=== PATIENT | male | born 1975 | race Two or more races ===

== ENCOUNTER 2021-01-24 16:31 | Emergency (ER) | payer MEDICAID ==
[~2021-01-24] VITALS: Ht 172.7 cm; Wt 65.8 kg
[2021-01-24 16:33] VITALS: BP 121/74
[2021-01-24 17:23] LABS: Basophils # (auto) 0.1 10 ^3/uL (0-0.2); Basophils % (auto) 0.5 % (0.0-2.0); Eosinophils # (auto) 0 10 ^3/uL (0-0.8); Eosinophils % (auto) 0.3 % (0.0-7.0); Hematocrit 38.6 % (41.0-53.0); Lymphocytes % (auto) 18.3 % (10.0-50.0); Mean Corpuscular Hemoglobin 29.4 pg (28.0-32.0); Mean Corpuscular Hgb Conc. 33.7 g/dL (32.0-36.0); Mean Corpuscular Volume 87.2 fL (80.0-100.0); Monocytes # (auto) 0.7 10 ^3/uL (0-1.3); Monocytes % (auto) 6.3 % (0.0-12.0); Neutrophils # (auto) 8.1 10 ^3/uL (1.6-8.6); Neutrophils % (auto) 74.6 % (37.0-80.0); Red Blood Cells 4.43 10^6/uL (4.5-5.90); Red Cell Distribution Width 16.4 % (11.8-14.3); White Blood Cell 10.8 10^3/uL (4.4-10.8)
[2021-01-24 17:42] LABS: Anion Gap 6 (5-15); Blood Alcohol < 3.0 mg/dL (0-5); Blood Urea Nitrogen 19 mg/dL (7-18); Calcium 8.3 mg/dL (8.5-10.1); Carbon Dioxide 25 mmol/L (21-32); Chloride 109 mmol/L (98-107); Glucose 106 mg/dL (74-106); Sodium 140 mmol/L (136-145)
[2021-01-24 17:46] LABS: Alanine Aminotransferase 22 U/L (16-61); Alkaline Phosphatase 60 U/L (45-117); Aspartate Aminotransferase 13 U/L (15-37); BUN/Creatinine Ratio 20.9; Bilirubin, Total 0.2 mg/dL (0.2-1.0); GFR African American 115 mL/min; GFR Non-African American 95 mL/min; Total Protein 6.2 g/dL (6.4-8.2)
== END 2021-01-24 18:06 | disposition home or self-care (01) ==
LOC: ER 16:31 → EDBD 16:31 → ER 18:06
DX: J40 Bronchitis, not specified as acute or chronic (principal); J32.9 Chronic sinusitis, unspecified; Z20.822 Contact with and (suspected) exposure to COVID-19
CPT/HCPCS: 36415; 71045; 80053; 80320; 85025; 87426

== ENCOUNTER 2024-07-23 08:29 | Inpatient (IN) | payer MEDICAID ==
[~2024-07-23] VITALS: Ht 172.7 cm; Wt 78.6 kg
--- NOTE | 2024-07-23 09:47 | ED.PDOC ---
History of Present Illness HPI Comments 48-year-old male brought in by EMS presents with a chief complaint of abdominal pain x an unknown amount of time with associated nausea and vomiting. Patient has developmental delay and is unclear on time frame. Patient is A/Ox3 at this time. Patient mentions that his last bowel movement was today. Patient is poor historian. Chief Complaint: Abdominal Pain Time Seen by MD: 09:12 Primary Care Provider: UNKNOWN Reviewed Notes: Medications, Allergies Allergies: Coded Allergies: NO KNOWN ALLERGIES (Unverified , 01/24/21) Information Source: Patient, Emergency Med Personnel Mode of Arrival: EMS Severity: Moderate Timing: Days Duration: Intermittent Prehospital treatment: None Past Medical History PAST MEDICAL HISTORY: Schizophrenia, Pt Confused Surgical History: Unknown, Pt Confused Family History Family History: Unknown, Pt Confused Social History Smoker: Unknown, Pt Confused Alcohol: Unknown, Pt Confused Drugs: Unknown, Pt Confused Constitutional: denies: chills, diaphoresis, fatigue, fever, malaise, sweats, weakness, others EENTM: denies: blurred vision, double vision, ear bleeding, ear discharge, ear drainage, ear pain, ear ringing, eye pain, eye redness, hearing loss, mouth pain, mouth swelling, nasal discharge, nose bleeding, nose congestion, nose pain, photophobia, tearing, throat pain, throat swelling, voice changes, others Respiratory: denies: cough, hemoptysis, orthopnea, SOB at rest, shortness of breath, SOB with excertion, stridor, wheezing, others Cardiovascular: denies: chest pain, dizzy spells, diaphoresis, Dyspnea on exertion, edema, irregular heart beat, left arm pain, lightheadedness, palpitations, PND, syncope, others Gastrointestinal: reports: abdominal pain, nausea, vomiting; denies: abdomen distended, blood streaked bowels, constipated, diarrhea, dysphagia, difficulty swallowing, hematemesis, melena, poor appetite, poor fluid intake, rectal blee ding, rectal pain, others Genitourinary: denies: burning, dysuria, flank pain, frequency, hematuria, incontinence, penile discharge, penile sore, pain, testicle pain, testicle swelling, urgency, others Neurological: denies: dizziness, fainting, headache, left sided numbness, left sided weakness, numbness, paresthesia, pre-existing deficit, right sided numbness, right sided weakness, seizure, speech problems, tingling, tremors, weakness, others Musculoskeletal: denies: back pain, gout, joint pain, joint swelling, muscle pain, muscle stiffness, neck pain, others Integumetry: denies: bruises, change in color, change in hair/nails, dryness, laceration, lesions, lumps, rash, wounds, others Allergic/Immunocompromised: denies: Difficulty Healing, Frequent Infections, Hives, Itching, others Hematologic/Lymphatic: denies: anemia, blood clots, easy bleeding, easy bruising, swollen glands, others Endocrine: denies: excessive hunger, excessive sweating, excessive thirst, excessive urination, flushing, intolerance to cold, intolerance to heat, unexplained weight gain, unexplained weight loss, others Psychiatric: denies: anxiety, bipolar disorder, depression, hopeless, panic disorder, schizophrenia, sleepless, suicidal, others All Other Systems: Reviewed and Negative Physical Exam General Appearance: No Apparent Distress, Normal HEENT: Normal ENT Inspection, Pharynx Normal, TMs Normal Neck: Full Range of Motion, Non-Tender, Normal, Normal Inspection Respiratory: Chest Non-Tender, Lungs Clear, No Accessory Muscle Use, No Respiratory Distress, Normal Breath Sounds Cardiovascular: No Edema, No JVD, No Murmur, No Gallop, Normal Peripheral Pulses, Regular Rate/Rhythm Breast Exam: Deferred Gastrointestinal: No Organomegaly, Non Tender, No Pulsatile Mass, Normal Bowel Sounds, Soft Genitalia: Deferred Pelvic: Deferred Rectal: Deferred Extremities: No calf tenderness, Normal capillary refill, Normal inspection, Normal range of motion, Non-tender, No pedal edema Musculoskeletal : Apperance: Normal Neurologic: Alert, champion of sustainable design II-XII nml as Tested, No Motor Deficits, Normal Affect, Normal Mood, No Sensory Deficits Cerebellar Function: Normal Reflexes: Normal Skin: Dry, Normal Color, Warm Lymphatic: No Adenopathy Was a procedure done? Was a procedure done?: No Differential Dx Considerations may include: Diverticulitis, acute appendicitis, constipation, renal colic, pyelonephritis X-Ray, Labs, Meds, VS Vital Signs Date Time Temp Pulse Resp B/P (MAP) Pulse Ox O2 Delivery O2 Flow Rate FiO2 07/23/24 12:00 73 07/23/24 12:00 74 19 113/73 (86) 97 07/23/24 10:00 79 20 106/69 (81) 99 07/23/24 09:04 Room Air* 0 21 07/23/24 09:00 97.5 86 22 117/66 (83) 97 97.5 07/23/24 08:36 97.9 90 20 110/70 (83) 99 Lab Test 07/23/24 10:53 07/23/24 10:14 07/23/24 09:45 Range/Units Troponin I High Sensitivity < 3 L < 3 L </=54 ng/L Urine Color Light-yellow Yellow Urine Clarity Clear Clear Urine pH 6.0 5.0-9.0 Urine Specific [place] 1.012 1.001-1.035 Urine Protein Negative Negative Urine Ketones Negative Negative Urine Blood Negative Negative /uL Urine Nitrite Negative Negative Urine Bilirubin Negative Negative Urine Urobilinogen Normal Negative mg/dL Urine Leukocyte Esterase Negative Negative /uL Urine RBC None seen 0 - 3 /hpf Urine Microscopic WBC < 1 0-3 /HPF Urine Squamous Epithelial Cells Few <5 /hpf Urine Bacteria None seen None Seen /hpf Urine Glucose Normal Normal mg/dL White Blood Count 8.5 4.4-10.8 10^3/uL Red Blood Count 3.65 L 4.5-5.90 10^6/uL Hemoglobin 8.6 L 13.5-17.5 g/dL Hematocrit 26.8 L 41.0-53.0 % Mean Corpuscular Volume 73.5 L 80.0-100.0 fL Mean Corpuscular Hemoglobin 23.7 L 28.0-32.0 pg Mean Corpuscular Hemoglobin Concent 32.2 32.0-36.0 g/dL Red Cell Distribution Width 17.9 H 11.8-14.3 % Platelet Count 304 140-450 10^3/uL Mean Platelet Volume 8.6 6.9-10.8 fL Neutrophils (%) (Auto) 74.8 37.0-80.0 % Lymphocytes (%) (Auto) 16.9 10.0-50.0 % Monocytes (%) (Auto) 6.9 0.0-12.0 % Eosinophils (%) (Auto) 0.6 0.0-7.0 % Basophils (%) (Auto) 0.8 0.0-2.0 % Neutrophils # (Auto) 6.3 1.6-8.6 10 ^3/uL Lymphocytes # (Auto) 1.4 0.4-5.4 10 ^3/uL Monocytes # (Auto) 0.6 0-1.3 10 ^3/uL Eosinophils # (Auto) 0 0-0.8 10 ^3/uL Basophils # (Auto) 0.1 0-0.2 10 ^3/uL Nucleated Red Blood Cells 0.0 % Sodium Level 136 136-145 mmol/L Potassium Level 5.2 H 3.5-5.1 mmol/L Chloride Level 106 98-107 mmol/L Carbon Dioxide Level 25 20-31 mmol/L Anion Gap 5 5-15 Blood Urea Nitrogen 24 H 9-23 mg/dL Creatinine 1.16 0.700-1.30 mg/dL Glomerular Filtration Rate Calc 77 >90 mL/min BUN/Creatinine Ratio 20.7 H 10.0-20.0 Serum Glucose 119 H 74-106 mg/dL Calcium Level 9.1 8.7-10.4 mg/dL Time of 1ST Reevaluation: 09:42 Reevaluation 1ST: Unchanged Patient Education/Counseling: Diagnosis, Treatment, Prognosis Family Education/Counseling: Diagnosis, Treatment, Prognosis Departure 1 Departure Time of Disposition: 12:50 (Patient presented with abdominal pain that was concerning for possible appendicits, gastritis, cholecystitis, colitis, gastroenteritis, sbo, or orther possible surgical emergency. Data: 1. I ordered and reviewed the result of at least 3 labs including a CBC, BMP, and Urinalysis. 2. I independently interpreted the following tests: CT Abdoment and Pelvis is concerning for bilateral distended ureter.Risk:This patient has a high risk of morbidity due to further diagnostic testing or treatment and may suffer from an acute abdominal process disorder. Workup reveals intractable abdominal pain, and hydroureter and patient should be admitted for further workup. and possible expert consultation. ) Impression: Primary Impression: Abdominal pain Qualified Codes: R10.84 - Generalized abdominal pain Additional Impressions: Hydroureteronephrosis Generalized weakness Disposition: ADMITTED INPATIENT Admit to: Med Surg Condition: Serious Critical Care Note Critical Care Time?: No Stability Stability form required: No Heart Score Heart Score: Heart Score Response (Comments) Value History N/A 0 EKG N/A 0 Age N/A 0 Risk Factors N/A 0 Troponin N/A 0 Total 0 I personally scribed for STAN MALIK MD ([email or web address]) on 07/23/24 at 09:47. Electronically submitted by Walt Villa ([email or web address]). STAN MALIK MD Jul 23, 2024 09:47
[2024-07-23 10:00] LABS: Basophils # (auto) 0.1 10 ^3/uL (0-0.2); Eosinophils # (auto) 0 10 ^3/uL (0-0.8); Eosinophils % (auto) 0.6 % (0.0-7.0); Mean Corpuscular Hemoglobin 23.7 pg (28.0-32.0); Red Cell Distribution Width 17.9 % (11.8-14.3)
[2024-07-23 10:02] LABS: Basophils % (auto) 0.8 % (0.0-2.0); Hematocrit 26.8 % (41.0-53.0); Hemoglobin 8.6 g/dL (13.5-17.5); Lymphocytes # (auto) 1.4 10 ^3/uL (0.4-5.4); Lymphocytes % (auto) 16.9 % (10.0-50.0); Mean Corpuscular Hgb Conc. 32.2 g/dL (32.0-36.0); Mean Corpuscular Volume 73.5 fL (80.0-100.0); Monocytes # (auto) 0.6 10 ^3/uL (0-1.3); Monocytes % (auto) 6.9 % (0.0-12.0); Neutrophils # (auto) 6.3 10 ^3/uL (1.6-8.6); Neutrophils % (auto) 74.8 % (37.0-80.0); Platelet Count (auto) 304 10^3/uL (140-450); Red Blood Cells 3.65 10^6/uL (4.5-5.90); White Blood Cell 8.5 10^3/uL (4.4-10.8)
[2024-07-23 10:03] LABS: Chloride 106 mmol/L (98-107)
[2024-07-23 10:04] LABS: Anion Gap 5 (5-15); Carbon Dioxide 25 mmol/L (20-31)
[2024-07-23 10:05] LABS: Calcium 9.1 mg/dL (8.7-10.4)
[2024-07-23 10:10] LABS: BUN/Creatinine Ratio 20.7 (10.0-20.0)
--- NOTE | 2024-07-23 10:10 | DVH ---
CHEST RADIOGRAPH Indication: dizziness Technique: Single frontal view of the chest was obtained COMPARISON: CHEST XRAY 1 VIEW on DOS: 01/24/21 FINDINGS: Lines and Tubes: None Lungs: Clear Pleura: No effusion. No pneumothorax. Cardiomediastinal contours: Unremarkable Bones: Unremarkable IMPRESSION: No acute disease.
[2024-07-23 10:11] LABS: Blood Urea Nitrogen 24 mg/dL (9-23); Glucose 119 mg/dL (74-106); Potassium 5.2 mmol/L (3.5-5.1); Sodium 136 mmol/L (136-145)
[2024-07-23 10:31] LABS: Urine Bacteria None Seen /hpf (None Seen)
[2024-07-23 10:43] LABS: Urine Blood Negative /uL (Negative); Urine Clarity Clear (Clear); Urine Color Light-Yellow (Yellow); Urine Protein, UAD Negative (Negative); Urine Specific Gravity 1.012 (1.001-1.035); Urine Squamous Epithelial Cell FEW /hpf (<5); Urine Urobilinogen Normal (Negative); Urine WBC < 1 /HPF (0-3)
[2024-07-23] MEDS: IOHEXOL 300 MG/ML 100ML BOTTLE IJ ONE (11:40)
--- NOTE | 2024-07-23 12:13 | DVH ---
Exam: CT CT AB PEL WITH IV CON ONLY History: abdominal pain TECHNIQUE: A digital manager risk management image was obtained. During the uneventful, intravenous administration of c ontrast material, multislice data acquisition was obtained through the abdomen and pelvis. The data s et was subsequently reconstructed into axial images. Images were reviewed on a work station using a c ombination of axial and multiplanar using a variety of window levels and settings. 100 cc of Omnipaqu e 300 contrast was injected intravenously. All CT scans at this medical facility are performed using dose modulation techniques as appropriate t o a performed exam including the following:Automated exposure control was utilized; adjustment of the MA and/or KV according to patient size; and use of iterative reconstruction technique. Radiation Dose Information: CT Dose: CTDI volume is 14.58 mGy. Dose-length product is 804.0 mGy*cm Comparison: None FINDINGS: There is moderate bilateral hydroureteronephrosis. There is no evidence of an obstructing ureteral ca lculus. There is no evidence of a renal calculus. The liver, gallbladder, pancreas, adrenal glands, and spleen appear within normal limits. There is no evidence of abdominal lymphadenopathy. There is no free fluid or free air. The stomach grossly appears unremarkable. The small and large bowel loops demonstrate normal caliber. There is moderate amount of stool in the colon. The abdominal aorta and IVC appear within normal limits. The bladder is moderately distended with mild circumferential wall thickening. There is no evidence o f a bladder calculus or obvious bladder wall lesion. There is no evidence of a pelvic mass or lymph adenopathy. There is no free fluid collection. Lung bases are clear. There is no acute osseous abnormality. There is a metallic fragment lodged in the medial right acetab ulum. IMPRESSION: 1. Moderate bilateral hydroureteronephrosis. There is no evidence of an obstructing ureteral calculus . There is no renal calculus. 2. Moderately distended bladder with mild circumferential wall thickening. There is no evidence of a bladder calculus or obvious bladder wall lesion. 3. Moderate amount of stool in the colon. HS:Y
[2024-07-23] MEDS ORDERED: ACETAMINOPHEN 325 MG TAB PO PRN (13:30)
[2024-07-23] MEDS ORDERED: DOCUSATE SOD 100 MG CAP PO PRN (13:30)
--- NOTE | 2024-07-23 14:06 | DVHHP2 ---
History of Present Illness Reason for Visit: Abdominal Pain History of Present Illness Deon Mckeon is a 48-year-old male with past medical history of mentally delayed, bipolar, and schizophrenia, who came to the hospital due to abdominal pain. Patient is a poor historian due to his medical history. He states he came to the hospital due to abdominal pain that radiates to his right flank, and dizziness. He is unable to tell me how long he has been experiencing these symptoms. States his pain is better at time of assessment. AP[employer]IS[employer]: Other (developmentally delayed) Psych: Bipolar, Schizophrenia Smoke: No ALCOHOL: none Drugs: None Lives: Other (snf) Domestic Violence: Neg Review of Systems Constitutional: No: Fever, Chills, Sweats, Weakness, Malaise, Other Eyes: No: Pain, Vision change, Conjunctivae inflammation, Eyelid inflammation, Other, Redness ENT: No: Ear pain, Ear discharge, Nose pain, Nose discharge, Nose congestion, Mouth pain, Mouth swelling, Throat pain, Throat swelling, Other Respiratory: No: Cough, Dry, Shortness of breath, SOB with excertion, Wheezing, Hemoptysis, Pleuritic Pain, Sputum, Wheezing, Other Cardiovascular: No: Chest Pain, Palpitations, Orthopnea, Paroxysmal Noc. Dyspnea, Edema, Lt Headedness, Other Gastrointestinal: Abdominal Pain; No: Nausea, Vomiting, Diarrhea, Constipation, Melena, Hematochezia, Other Genitourinary: No Dysuria, No Frequency, No Incontinence, No Hematuria, No Retention, No Other Musculoskeletal: back pain (right flank); No: other, neck pain, shoulder pain, arm pain, hand pain, leg pain, foot pain Skin: No: Rash, Lesions, Jaundice, Bruising, Other Neurological: No: Weakness, Numbness, Incoordination, Change in speech, Confusion, Seizures, Other Allergies: Coded Allergies: NO KNOWN ALLERGIES (Unverified , 01/24/21) Exam Vital Signs Vital Signs Date Time Temp Pulse Resp B/P (MAP) Pulse Ox O2 Delivery O2 Flow Rate FiO2 07/23/24 12:00 73 07/23/24 12:00 19 113/73 (86) 97 07/23/24 09:04 Room Air* 0 21 07/23/24 09:00 97.5 97.5 General Appearance: Alert, Cooperative, mild distress, Other (Oriented x 2) HEENT: Atraumatic, PERRLA Respiratory: Clear to auscultation, Normal air movement Cardiovascular: Regular rate, Normal S1, Normal S2 Abdominal: Normal bowel sounds, Soft, No tenderness Extremities: No clubbing, No cyanosis, No edema, Normal pulses Skin: No rashes, No breakdown, No significant lesion Neuro: Normal gait, Normal speech, Strength at 5/5 X4 ext Psych/Mental Status: Mental status NL, Mood NL Labs/Xrays Labs Test 07/23/24 12:54 07/23/24 10:14 07/23/24 09:45 Range/Units Urine Color Light-yellow Yellow Urine Clarity Clear Clear Urine pH 6.0 5.0-9.0 Urine Specific [place] 1.012 1.001-1.035 Urine Protein Negative Negative Urine Ketones Negative Negative Urine Blood Negative Negative /uL Urine Nitrite Negative Negative Urine Bilirubin Negative Negative Urine Urobilinogen Normal Negative mg/dL Urine Leukocyte Esterase Negative Negative /uL Urine RBC None seen 0 - 3 /hpf Urine Microscopic WBC < 1 0-3 /HPF Urine Squamous Epithelial Cells Few <5 /hpf Urine Bacteria None seen None Seen /hpf Urine Glucose Normal Normal mg/dL White Blood Count 8.5 4.4-10.8 10^3/uL Red Blood Count 3.65 L 4.5-5.90 10^6/uL Hemoglobin 8.6 L 13.5-17.5 g/dL Hematocrit 26.8 L 41.0-53.0 % Mean Corpuscular Volume 73.5 L 80.0-100.0 fL Mean Corpuscular Hemoglobin 23.7 L 28.0-32.0 pg Mean Corpuscular Hemoglobin Concent 32.2 32.0-36.0 g/dL Red Cell Distribution Width 17.9 H 11.8-14.3 % Platelet Count 304 140-450 10^3/uL Mean Platelet Volume 8.6 6.9-10.8 fL Neutrophils (%) (Auto) 74.8 37.0-80.0 % Lymphocytes (%) (Auto) 16.9 10.0-50.0 % Monocytes (%) (Auto) 6.9 0.0-12.0 % Eosinophils (%) (Auto) 0.6 0.0-7.0 % Basophils (%) (Auto) 0.8 0.0-2.0 % Neutrophils # (Auto) 6.3 1.6-8.6 10 ^3/uL Lymphocytes # (Auto) 1.4 0.4-5.4 10 ^3/uL Monocytes # (Auto) 0.6 0-1.3 10 ^3/uL Eosinophils # (Auto) 0 0-0.8 10 ^3/uL Basophils # (Auto) 0.1 0-0.2 10 ^3/uL Nucleated Red Blood Cells 0.0 % Sodium Level 136 136-145 mmol/L Potassium Level 5.2 H 3.5-5.1 mmol/L Chloride Level 106 98-107 mmol/L Carbon Dioxide Level 25 20-31 mmol/L Anion Gap 5 5-15 Blood Urea Nitrogen 24 H 9-23 mg/dL Creatinine 1.16 0.700-1.30 mg/dL Glomerular Filtration Rate Calc 77 >90 mL/min BUN/Creatinine Ratio 20.7 H 10.0-20.0 Serum Glucose 119 H 74-106 mg/dL Calcium Level 9.1 8.7-10.4 mg/dL Exam: CT CT AB PEL WITH IV CON ONLY FINDINGS: There is moderate bilateral hydroureteronephrosis. There is no evidence of an obstructing ureteral calculus. There is no evidence of a renal calculus. The liver, gallbladder, pancreas, adrenal glands, and spleen appear within normal limits. There is no evidence of abdominal lymphadenopathy. There is no free fluid or free air. The stomach grossly appears unremarkable. The small and large bowel loops demonstrate normal caliber. There is moderate amount of stool in the colon. The abdominal aorta and IVC appear within normal limits. The bladder is moderately distended with mild circumferential wall thickening. There is no evidence of a bladder calculus or obvious bladder wall lesion. There is no evidence of a pelvic mass or lymphadenopathy. There is no free fluid collection. Lung bases are clear. There is no acute osseous abnormality. There is a metallic fragment lodged in the medial right acetabulum. IMPRESSION: 1. Moderate bilateral hydroureteronephrosis. There is no evidence of an obstructing ureteral calculus. There is no renal calculus. 2. Moderately distended bladder with mild circumferential wall thickening. There is no evidence of a bladder calculus or obvious bladder wall lesion. 3. Moderate amount of stool in the colon. CHEST RADIOGRAPH FINDINGS: Lines and Tubes: None Lungs: Clear Pleura: No effusion. No pneumothorax. Cardiomediastinal contours: Unremarkable Bones: Unremarkable IMPRESSION: No acute disease. Assessment/Plan Assessment/Plan Assessment: Hydroureteronephrosis, Distended, thickened bladder, Bipolar, Schizophrenia, Plan: Admit to Med-Surg, Urology consult, IV hydration, Pain management, Bladder ultrasound, Home medications reconciled, Plan discussed with: Patient My Orders Orders - CHARISSE ANN Procedure Category Date Status Time Admit ADMIT 07/23/24 Verified 13:27 Code Status CODE 07/23/24 Verified 13:27 2 Gm Sodium Diet DIET 07/23/24 Verified Lunch Sodium Chloride Lock PHA 07/23/24 Verified (Saline Lock Ns) 14:00 Hydrocodone-Acet PHA 07/23/24 Verified 5/325mg Tab ([place] 13:30 Ondansetron Hcl PHA 07/23/24 Verified (Zofran) 13:30 Docusate Sodium PHA 07/23/24 Verified Capsule (Colace 13:30 Complete Blood Count LAB 07/24/24 Verified 04:00 Comprehensive LAB 07/24/24 Verified Metabolic Panel 04:00 Condition: Serious LEATHA 07/23/24 Verified 13:27 Acetaminophen Tablet PHA 07/23/24 Verified (Tylenol Tablet) 13:30 * Urology Consult CONS 07/23/24 Verified 13:27 NS PHA 07/23/24 Verified 13:30 Date of Service: Jul 23, 2024 Billing Provider: CHARISSE ANN Common Visit Codes: [id number] INP/OBS CARE (MOD) CHARISSE ANN Jul 23, 2024 14:06
[2024-07-23] MEDS: SODIUM CHLOR 0.9% PF (SALINE LOCK) 10ML VIAL/SYR IV SCH (14:16)
[2024-07-23] MEDS: SODIUM CHLORIDE 0.9% 1,000 ML IV ONE (14:18)
[2024-07-23] MEDS ORDERED: RISP2TAB62 PO (17:28)
[2024-07-23] MEDS ORDERED: PANT40T PO (17:28)
[2024-07-23] MEDS ORDERED: LORA-1123 PO (17:28)
[2024-07-23] MEDS ORDERED: QUET400T13 PO (17:28)
[2024-07-23] MEDS ORDERED: HYDR-3682 PO (17:28)
[2024-07-23] MEDS ORDERED: SENN-105 PO (17:28)
[2024-07-23] MEDS ORDERED: PRAZ2CAP2 PO (17:28)
[2024-07-23] MEDS ORDERED: BENZ2TAB50 PO (17:28)
[2024-07-23] MEDS ORDERED: TRAZ-228 PO (17:28)
[2024-07-23] MEDS: LORazepam 0.5 MG TAB PO PRN (19:43)
[2024-07-23 21:00] VITALS: BP 126/79; PULSE 72; RESP 18; TEMP 97.8; O2SAT 100
[2024-07-23] MEDS: risperiDONE 1 MG TAB PO SCH (23:07)
[2024-07-23] MEDS: SENNA 8.6 MG TAB PO SCH (23:07)
[2024-07-23] MEDS: traZODone HCL 50 MG TAB PO SCH (23:08)
[2024-07-24] VITALS (10 sets, daily range): BP systolic 90–128; BP diastolic 53–82; PULSE 74–85; RESP 16–20; TEMP 97.4–98.2; O2SAT 96–100
[2024-07-24] MEDS: ONDANSETRON HCL 4 MG/2 ML VIAL IV PRN (01:17)
[2024-07-24] MEDS: hydrOXYzine 25 MG TAB or CAP PO SCH (01:21)
[2024-07-24] MEDS: QUEtiapine FUMARATE 100 MG TAB PO SCH (01:23)
[2024-07-24 06:44] LABS: Alanine Aminotransferase 18 U/L (7-40); Alkaline Phosphatase 55 U/L (46-116); Anion Gap 7 (5-15); BUN/Creatinine Ratio 13.1 (10.0-20.0); Blood Urea Nitrogen 14 mg/dL (9-23); Carbon Dioxide 25 mmol/L (20-31); Chloride 106 mmol/L (98-107); Glucose 91 mg/dL (74-106); Potassium 4.3 mmol/L (3.5-5.1); Sodium 138 mmol/L (136-145)
[2024-07-24 06:45] LABS: Albumin 3.7 g/dL (3.2-4.8)
[2024-07-24 06:46] LABS: Bilirubin, Total 0.3 mg/dL (0.2-1.0)
[2024-07-24 06:47] LABS: Aspartate Aminotransferase 10 U/L (13-40); Total Protein 5.5 g/dL (5.7-8.2)
[2024-07-24 07:02] LABS: Eosinophils # (auto) 0.1 10 ^3/uL (0-0.8); Mean Corpuscular Hemoglobin 23.6 pg (28.0-32.0); Monocytes # (auto) 0.4 10 ^3/uL (0-1.3); White Blood Cell 5.5 10^3/uL (4.4-10.8)
[2024-07-24 07:05] LABS: Basophils # (auto) 0 10 ^3/uL (0-0.2); Basophils % (auto) 0.7 % (0.0-2.0); Eosinophils % (auto) 2.2 % (0.0-7.0); Hematocrit 28.1 % (41.0-53.0); Lymphocytes % (auto) 37.2 % (10.0-50.0); Mean Corpuscular Volume 73.7 fL (80.0-100.0); Monocytes % (auto) 6.8 % (0.0-12.0); Neutrophils # (auto) 2.9 10 ^3/uL (1.6-8.6); Neutrophils % (auto) 53.1 % (37.0-80.0); Platelet Count (auto) 299 10^3/uL (140-450); Red Blood Cells 3.81 10^6/uL (4.5-5.90); Red Cell Distribution Width 17.9 % (11.8-14.3)
[2024-07-24] MEDS: PRAZOSIN HCL 1 MG CAP PO SCH (09:17)
[2024-07-24] MEDS: PANTOPRAZOLE 40 MG TAB PO SCH (09:18)
[2024-07-24] MEDS: BENZTROPINE MESY 0.5 MG TAB PO SCH (09:18)
--- NOTE | 2024-07-24 09:57 | DVHINCON2 ---
Date of service: Jul 24, 2024 Referring Physician hospitalist Reason for Consultation hydronephrosis History of Present Illness History Source: Patient, RN Notes, MD Notes Exam Limitations: No limitations HPI 48-year-old male brought in by EMS presents with a chief complaint of abdominal pain x an unknown amount of time with associated nausea and vomiting. Patient has developmental delay and is unclear on time frame. Patient is A/Ox3 at this time. Patient mentions that his last bowel movement was today. Patient is poor historian. CT showed bilateral hydro and severely distended bladder with bladder wall thickening Home Meds Reported Medications Benztropine Mesylate (Benztropine Mesylate) 2 Mg Tab, 1 TAB PO DAILY 07/23/24 Quetiapine Fumerate (QUETIAPINE FUMARATE) 400 Mg Tab, 1 TAB PO BID 07/23/24 Risperidone (Risperidone) 2 Mg Tab, 2 TAB PO BID 07/23/24 Trazodone Hcl (Trazodone Hcl) 100 Mg Tab, 1 TAB PO HS 07/23/24 Hydroxyzine Hcl (Hydroxyzine Hcl) 25 Mg Tab, 1 TAB PO BID 07/23/24 Pantoprazole Sodium Sesquihydr (Pantoprazole Sodium) 40 Mg Tab, 1 TAB PO DAILY 07/23/24 Senna (Senna) 8.6 Mg Tab, 2 TAB PO BID 07/23/24 Prazosin HCl (Prazosin Hydrochloride) 2 Mg Cap, 1 TAB PO DAILY 07/23/24 Lorazepam (Lorazepam) 1 Mg Tab, 1 TAB PO DAILYPRN PRN 07/23/24 Review of Systems Gastrointestinal: Nausea, Vomiting, Abdominal Pain H&P Exam Vital Signs Vital Signs Date Time Temp Pulse Resp B/P (MAP) Pulse Ox O2 Delivery O2 Flow Rate FiO2 07/24/24 09:17 119/77 07/24/24 07:45 20 Room Air* 0 21 07/24/24 05:00 98.2 74 96 98.2 Labs/Xrays [facility] [id number] [place] [id number] Ph: [phone] DIAGNOSTIC IMAGING Diagnostic Imaging Report : [id number] Signed PATIENT: MICHAEL ZACARIAS ACCT: [id number] UNIT: [id number] : 1975 LOC: ER ROOM / BED: / AGE / SEX: 48 / M ADM STATUS: REG ER SERVICE 1109 ORDERING PHYSICIAN: STAN MALIK MD PROCEDURE(s): ABPLIV - CT AB PEL WITH IV CON ONLY REASON: abdominal pain ORDER NUMBER(s): [id number], ACCESSION NUMBER(s): [id number] Exam: CT CT AB PEL WITH IV CON ONLY History: abdominal pain TECHNIQUE: A digital construction recruiter image was obtained. During the uneventful, intravenous administration of contrast material, multislice data acquisition was obtained through the abdomen and pelvis. The data set was subsequently reconstructed into axial images. Images were reviewed on a work station using a combination of axial and multiplanar using a variety of window levels and settings. 100 cc of Omnipaque 300 contrast was injected intravenously. All CT scans at this medical facility are performed using dose modulation techniques as appropriate to a performed exam including the following:Automated exposure control was utilized; adjustment of the MA and/or KV according to patient size; and use of iterative reconstruction technique. Radiation Dose Information: CT Dose: CTDI volume is 14.58 mGy. Dose-length product is 804.0 mGy*cm Comparison: None FINDINGS: There is moderate bilateral hydroureteronephrosis. There is no evidence of an obstructing ureteral calculus. There is no evidence of a renal calculus. The liver, gallbladder, pancreas, adrenal glands, and spleen appear within normal limits. There is no evidence of abdominal lymphadenopathy. There is no free fluid or free air. The stomach grossly appears unremarkable. The small and large bowel loops demonstrate normal caliber. There is moderate amount of stool in the colon. The abdominal aorta and IVC appear within normal limits. The bladder is moderately distended with mild circumferential wall thickening. There is no evidence of a bladder calculus or obvious bladder wall lesion. There is no evidence of a pelvic mass or lymphadenopathy. There is no free fluid collection. Lung bases are clear. There is no acute osseous abnormality. There is a metallic fragment lodged in the medial right acetabulum. IMPRESSION: 1. Moderate bilateral hydroureteronephrosis. There is no evidence of an obstructing ureteral calculus. There is no renal calculus. 2. Moderately distended bladder with mild circumferential wall thickening. There is no evidence of a bladder calculus or obvious bladder wall lesion. 3. Moderate amount of stool in the colon. HS:Y ATED BY: SAAD PARRISH MD DICTATED DATE/TIME: 07/23/241210 SIGNED BY: SAAD PARRISH MD SIGNED DATE/TIME: 07/23/241210 CC: Labs Test 07/24/24 05:21 07/23/24 12:54 07/23/24 10:14 Range/Units White Blood Count 5.5 # 4.4-10.8 10^3/uL Red Blood Count 3.81 L 4.5-5.90 10^6/uL Hemoglobin 9.0 L 13.5-17.5 g/dL Hematocrit 28.1 L 41.0-53.0 % Mean Corpuscular Volume 73.7 L 80.0-100.0 fL Mean Corpuscular Hemoglobin 23.6 L 28.0-32.0 pg Mean Corpuscular Hemoglobin Concent 32.0 32.0-36.0 g/dL Red Cell Distribution Width 17.9 H 11.8-14.3 % Platelet Count 299 140-450 10^3/uL Mean Platelet Volume 8.8 6.9-10.8 fL Neutrophils (%) (Auto) 53.1 37.0-80.0 % Lymphocytes (%) (Auto) 37.2 10.0-50.0 % Monocytes (%) (Auto) 6.8 0.0-12.0 % Eosinophils (%) (Auto) 2.2 0.0-7.0 % Basophils (%) (Auto) 0.7 0.0-2.0 % Neutrophils # (Auto) 2.9 1.6-8.6 10 ^3/uL Lymphocytes # (Auto) 2.0 0.4-5.4 10 ^3/uL Monocytes # (Auto) 0.4 0-1.3 10 ^3/uL Eosinophils # (Auto) 0.1 0-0.8 10 ^3/uL Basophils # (Auto) 0 0-0.2 10 ^3/uL Nucleated Red Blood Cells 0.0 % Sodium Level 138 136-145 mmol/L Potassium Level 4.3 3.5-5.1 mmol/L Chloride Level 106 98-107 mmol/L Carbon Dioxide Level 25 20-31 mmol/L Anion Gap 7 5-15 Blood Urea Nitrogen 14 # 9-23 mg/dL Creatinine 1.07 0.700-1.30 mg/dL Glomerular Filtration Rate Calc 85 >90 mL/min BUN/Creatinine Ratio 13.1 10.0-20.0 Serum Glucose 91 74-106 mg/dL Calcium Level 9.0 8.7-10.4 mg/dL Total Bilirubin 0.3 0.2-1.0 mg/dL Aspartate Amino Transferase (AST) 10 L 13-40 U/L Alanine Aminotransferase (ALT) 18 7-40 U/L Alkaline Phosphatase 55 46-116 U/L Total Protein 5.5 L 5.7-8.2 g/dL Albumin 3.7 3.2-4.8 g/dL Troponin I High Sensitivity < 3 L </=54 ng/L Urine Color Light-yellow Yellow Urine Clarity Clear Clear Urine pH 6.0 5.0-9.0 Urine Specific [place] 1.012 1.001-1.035 Urine Protein Negative Negative Urine Ketones Negative Negative Urine Blood Negative Negative /uL Urine Nitrite Negative Negative Urine Bilirubin Negative Negative Urine Urobilinogen Normal Negative mg/dL Urine Leukocyte Esterase Negative Negative /uL Urine RBC None seen 0 - 3 /hpf Urine Microscopic WBC < 1 0-3 /HPF Urine Squamous Epithelial Cells Few <5 /hpf Urine Bacteria None seen None Seen /hpf Urine Glucose Normal Normal mg/dL Assessment/Plan Problem List: (1) Urinary retention (2) Generalized weakness (3) Abdominal pain (4) Hydroureteronephrosis Plan montanez to gravity renal US after montanez x 24 hrs outpt cystoscopy Plan discussed with: Other WM FLORES NP Jul 24, 2024 09:57
--- NOTE | 2024-07-24 15:42 | DVHPN2 ---
Subjective 48-year-old male with a history of bipolar, schizophrenia, mental delay came with the abdominal pain He was found to have bilateral hydronephrosis with no stones He has a anemia Potassium was high with some kidney dysfunction Changes from previous H/P or p: Changes Eyes: No Pain, No Vision change, No Conjunctivae inflammation, No Eyelid inflammation, No Other, No Redness ENT: No Ear pain, No Ear discharge, No Nose pain, No Nose discharge, No Nose congestion, No Mouth pain, No Mouth swelling, No Throat pain, No Throat swelling, No Other Cardiovascular: No Chest Pain, No Palpitations, No Orthopnea, No Paroxysmal Noc. Dyspnea, No Edema, No Lt Headedness, No Other Respiratory: No Cough, No Dry, No Shortness of breath, No SOB with excertion, No Wheezing, No Hemoptysis, No Pleuritic Pain, No Sputum, No Other Gastrointestinal: No Nausea, No Vomiting; Abdominal Pain; No Diarrhea, No Constipation, No Melena, No Hematochezia, No Other Genitourinary: No Dysuria, No Frequency, No Incontinence, No Hematuria, No Retention, No Other Musculoskeletal: No other, No neck pain, No shoulder pain, No arm pain; back pain (right flank); No hand pain, No leg pain, No foot pain Skin: No Rash, No Lesions, No Jaundice, No Bruising, No Other Objective Vitals Vital Signs Date Time Temp Pulse Resp B/P (MAP) Pulse Ox O2 Delivery O2 Flow Rate FiO2 07/24/24 14:25 98.2 82 18 118/71 (87) 100 98.2 07/24/24 07:45 Room Air* 0 21 Intake/Output Intake and Output 07/24/24 07:00 Intake Total 1000 ml Output Total 500 ml Balance 500 ml Intake IV Total 1000 ml Output Urine Total 500 ml # Voids 1 General Appearance: Alert, Oriented X3, Cooperative, No acute distress Lungs: Clear to auscultation, Normal air movement Cardiovascular: Regular rate, Normal S1 Abdomen: Normal bowel sounds, Soft Extremities: No edema Medications Current Medications Medications Dose Ordered Sig/Gwendolyn Route Start Time Stop Time Status Last Admin Dose Admin Sodium Chloride 10 ml Q8HR IV 07/23/24 14:00 07/24/24 06:19 10 ML Acetaminophen/ Hydrocodone Bitart 1 tab Q4HP PRN PO 07/23/24 13:30 Ondansetron HCl 4 mg Q4HP PRN IV 07/23/24 13:30 07/24/24 01:17 4 MG Docusate Sodium 100 mg BIDPRN PRN PO 07/23/24 13:30 Acetaminophen 650 mg Q6HP PRN PO 07/23/24 13:30 Pantoprazole Sodium 40 mg DAILY PO 07/24/24 10:00 07/24/24 09:18 40 MG Sennosides 17.2 mg BID PO 07/23/24 22:00 07/24/24 09:16 17.2 MG Benztropine Mesylate 2 mg DAILY PO 07/24/24 10:00 07/24/24 09:18 2 MG Hydroxyzine Pamoate 25 mg BID PO 07/23/24 22:00 07/24/24 09:18 25 MG Lorazepam 1 mg DAILYPRN PRN PO 07/23/24 18:15 07/23/24 19:43 1 MG Prazosin HCl 2 mg DAILY PO 07/24/24 10:00 07/24/24 09:17 2 MG Quetiapine Fumarate 400 mg BID PO 07/23/24 22:00 07/24/24 09:17 400 MG Risperidone 2 mg BID PO 07/23/24 22:00 07/24/24 09:18 2 MG Trazodone HCl 100 mg HS PO 07/23/24 22:00 07/23/24 23:08 100 MG Laboratory Results Laboratory Tests 07/24/24 05:21 Chemistry Test 07/24/24 05:21 Albumin 3.7 g/dL (3.2-4.8) Calcium Level 9.0 mg/dL (8.7-10.4) Total Protein 5.5 g/dL (5.7-8.2) L LFT Test 07/24/24 05:21 Alanine Aminotransferase (ALT) 18 U/L (7-40) Alkaline Phosphatase 55 U/L (46-116) Aspartate Amino Transferase (AST) 10 U/L (13-40) L Total Bilirubin 0.3 mg/dL (0.2-1.0) Urinalysis Test 07/23/24 10:14 Urine Color Light-yellow (Yellow) Urine Clarity Clear (Clear) Urine pH 6.0 (5.0-9.0) Urine Specific [place] 1.012 (1.001-1.035) Urine Protein Negative (Negative) Urine Ketones Negative (Negative) Urine Blood Negative /uL (Negative) Urine Nitrite Negative (Negative) Urine Bilirubin Negative (Negative) Urine Urobilinogen Normal mg/dL (Negative) Urine Leukocyte Esterase Negative /uL (Negative) Urine RBC None seen /hpf (0 - 3) Urine Microscopic WBC < 1 /HPF (0-3) Urine Squamous Epithelial Cells Few /hpf (<5) Urine Bacteria None seen /hpf (None Seen) Urine Glucose Normal mg/dL (Normal) Assessment/Plan Assessment/Plan Abdominal pain Bilateral hydroureteronephrosis No renal calculus Distended bladder with circumferential wall thickening Constipation Acute kidney injury due to possibly bladder outlet obstruction Plan Cooley catheter Urology consult Resume home medications Urology recommended a renal ultrasound after the Cooley catheter is inserted The patient refused to have the Cooley earlier today but now he is agreeable Monitor the patient closely Full code Plan discussed with: Patient My Orders Orders - CANDELARIO CONWAY MD Procedure Category Date Status Time * Hand Developer CONS 07/24/24 Transmitted Consult Date of Service: Jul 24, 2024 Billing Provider: CANDELARIO CONWAY MD Common Visit Codes: [id number] INP/OBS CARE(HIGH) CANDELARIO CONWAY MD Jul 24, 2024 15:42
[2024-07-24] MEDS: HYDROcodone-ACET 5/325MG TAB PO PRN (21:39)
[2024-07-25] VITALS (9 sets, daily range): BP systolic 86–113; BP diastolic 50–89; PULSE 78–116; RESP 16–20; TEMP 97.5–98.1; O2SAT 94–97
--- NOTE | 2024-07-25 09:57 | DVH ---
INDICATION: hydronephrosis TECHNIQUE: Multiple real-time sonographic images of the kidneys and bladder were obtained. COMPARISON: None FINDINGS: The right kidney measures 8 cm in length, which is normal in size. There is normal echogenicity of th e right kidney. Mild right hydronephrosis. The left kidney measures 10 cm in length, which is normal in size. There is normal echogenicity of th e left kidney. No hydronephrosis. No large intraluminal masses are seen in the bladder. IMPRESSION: 1. Mild right hydronephrosis. 2. Malrotation of the right kidney. 3. Prostate measures 7 cm. Correlate with PSA.
--- NOTE | 2024-07-25 11:02 | DVHPN2 ---
Subjective Asymptomatic Ultrasound of the kidneys shows enlarged prostate today with improved hydronephrosis Cooley catheter was removed this morning He is still asking to be placed in a different facility than where he came from Changes from previous H/P or p: Changes Eyes: No Pain, No Vision change, No Conjunctivae inflammation, No Eyelid inflammation, No Other, No Redness ENT: No Ear pain, No Ear discharge, No Nose pain, No Nose discharge, No Nose congestion, No Mouth pain, No Mouth swelling, No Throat pain, No Throat swelling, No Other Cardiovascular: No Chest Pain, No Palpitations, No Orthopnea, No Paroxysmal Noc. Dyspnea, No Edema, No Lt Headedness, No Other Respiratory: No Cough, No Dry, No Shortness of breath, No SOB with excertion, No Wheezing, No Hemoptysis, No Pleuritic Pain, No Sputum, No Other Gastrointestinal: No Nausea, No Vomiting; Abdominal Pain; No Diarrhea, No Constipation, No Melena, No Hematochezia, No Other Genitourinary: No Dysuria, No Frequency, No Incontinence, No Hematuria, No Retention, No Other Musculoskeletal: No other, No neck pain, No shoulder pain, No arm pain; back pain (right flank); No hand pain, No leg pain, No foot pain Skin: No Rash, No Lesions, No Jaundice, No Bruising, No Other Objective Vitals Vital Signs Date Time Temp Pulse Resp B/P (MAP) Pulse Ox O2 Delivery O2 Flow Rate FiO2 07/25/24 08:38 98.1 78 16 100/61 (74) 94 98.1 07/25/24 07:44 Room Air* 0 21 Intake/Output Intake and Output 07/25/24 07:00 Intake Total 1550 ml Output Total 2300 ml Balance -750 ml Intake Oral 1550 ml Output Urine Total 2300 ml # Voids 3 General Appearance: Alert, Oriented X3, Cooperative, No acute distress Lungs: Clear to auscultation, Normal air movement Cardiovascular: Regular rate, Normal S1 Abdomen: Normal bowel sounds, Soft Extremities: No edema Medications Current Medications Medications Dose Ordered Sig/Gwendolyn Route Start Time Stop Time Status Last Admin Dose Admin Sodium Chloride 10 ml Q8HR IV 07/23/24 14:00 07/25/24 05:50 10 ML Acetaminophen/ Hydrocodone Bitart 1 tab Q4HP PRN PO 07/23/24 13:30 07/24/24 21:39 1 TAB Ondansetron HCl 4 mg Q4HP PRN IV 07/23/24 13:30 07/24/24 01:17 4 MG Docusate Sodium 100 mg BIDPRN PRN PO 07/23/24 13:30 Acetaminophen 650 mg Q6HP PRN PO 07/23/24 13:30 Pantoprazole Sodium 40 mg DAILY PO 07/24/24 10:00 07/25/24 08:35 40 MG Sennosides 17.2 mg BID PO 07/23/24 22:00 07/25/24 08:34 17.2 MG Benztropine Mesylate 2 mg DAILY PO 07/24/24 10:00 07/25/24 08:34 2 MG Hydroxyzine Pamoate 25 mg BID PO 07/23/24 22:00 07/25/24 08:36 25 MG Lorazepam 1 mg DAILYPRN PRN PO 07/23/24 18:15 07/23/24 19:43 1 MG Prazosin HCl 2 mg DAILY PO 07/24/24 10:00 07/24/24 09:17 2 MG Quetiapine Fumarate 400 mg BID PO 07/23/24 22:00 07/25/24 08:34 400 MG Risperidone 2 mg BID PO 07/23/24 22:00 07/25/24 08:36 2 MG Trazodone HCl 100 mg HS PO 07/23/24 22:00 07/24/24 21:39 100 MG Laboratory Results Laboratory Tests 07/24/24 05:21 Urinalysis Test 07/23/24 10:14 Urine Color Light-yellow (Yellow) Urine Clarity Clear (Clear) Urine pH 6.0 (5.0-9.0) Urine Specific [place] 1.012 (1.001-1.035) Urine Protein Negative (Negative) Urine Ketones Negative (Negative) Urine Blood Negative /uL (Negative) Urine Nitrite Negative (Negative) Urine Bilirubin Negative (Negative) Urine Urobilinogen Normal mg/dL (Negative) Urine Leukocyte Esterase Negative /uL (Negative) Urine RBC None seen /hpf (0 - 3) Urine Microscopic WBC < 1 /HPF (0-3) Urine Squamous Epithelial Cells Few /hpf (<5) Urine Bacteria None seen /hpf (None Seen) Urine Glucose Normal mg/dL (Normal) Assessment/Plan Assessment/Plan Abdominal pain Bilateral hydroureteronephrosis No renal calculus Distended bladder with circumferential wall thickening Constipation Acute kidney injury due to possibly bladder outlet obstruction Plan Cooley catheter Urology consult Resume home medications Urology recommended a renal ultrasound after the Cooley catheter is inserted The patient refused to have the Cooley earlier today but now he is agreeable Monitor the patient closely Full code 07/25/2024: BPH: Patient refuses start a Cooley again Start Flomax 0.4 mg at bedtime Check the PSA Discharge planning: 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
[2024-07-25] MEDS: TAMSULOSIN HYDROCHLORIDE 0.4 MG CAP PO SCH (16:57)
[2024-07-26 00:58] VITALS: BP 93/55; PULSE 91; RESP 17; TEMP 98.1; O2SAT 95
[2024-07-26 04:55] VITALS: BP 95/57; PULSE 77; RESP 17; TEMP 97.9; O2SAT 96
[2024-07-26 07:52] LABS: Calcium 9.5 mg/dL (8.7-10.4); Chloride 102 mmol/L (98-107); Potassium 4.2 mmol/L (3.5-5.1)
[2024-07-26 07:53] LABS: Anion Gap 8 (5-15); Carbon Dioxide 26 mmol/L (20-31)
[2024-07-26 07:54] LABS: Sodium 136 mmol/L (136-145)
[2024-07-26 07:58] LABS: BUN/Creatinine Ratio 12.5 (10.0-20.0); Blood Urea Nitrogen 16 mg/dL (9-23); Glucose 94 mg/dL (74-106)
[2024-07-26 08:00] VITALS: PULSE 92; RESP 18; O2SAT 92
[2024-07-26 09:03] VITALS: BP 96/54; PULSE 92; RESP 18; TEMP 97.8; O2SAT 92
[2024-07-26 09:07] LABS: Prostate Specific Antigen 0.5 ng/mL (0.0-4.0)
[2024-07-26] MEDS ORDERED: TAMS-35 PO (11:20)
--- NOTE | 2024-07-26 11:23 | DVHDS2 ---
Discharge Summary Date of Admission Jul 23, 2024 at 13:27 Date of Discharge: Jul 26, 2024 Labs/Diagnostic Data: Laboratory Results Test 07/26/24 07:15 07/25/24 11:14 07/24/24 05:21 07/23/24 12:54 Sodium Level 136 mmol/L (136-145) Potassium Level 4.2 mmol/L (3.5-5.1) Chloride Level 102 mmol/L (98-107) Carbon Dioxide Level 26 mmol/L (20-31) Anion Gap 8 (5-15) Blood Urea Nitrogen 16 mg/dL (9-23) Creatinine 1.28 mg/dL (0.700-1.30) Glomerular Filtration Rate Calc 68 mL/min (>90) BUN/Creatinine Ratio 12.5 (10.0-20.0) Serum Glucose 94 mg/dL (74-106) Calcium Level 9.5 mg/dL (8.7-10.4) Prostate Specific Antigen Total 0.5 ng/mL (0.0-4.0) White Blood Count 5.5 10^3/uL (4.4-10.8) Red Blood Count 3.81 10^6/uL (4.5-5.90) Hemoglobin 9.0 g/dL (13.5-17.5) Hematocrit 28.1 % (41.0-53.0) Mean Corpuscular Volume 73.7 fL (80.0-100.0) Mean Corpuscular Hemoglobin 23.6 pg (28.0-32.0) Mean Corpuscular Hemoglobin Concent 32.0 g/dL (32.0-36.0) Red Cell Distribution Width 17.9 % (11.8-14.3) Platelet Count 299 10^3/uL (140-450) Mean Platelet Volume 8.8 fL (6.9-10.8) Neutrophils (%) (Auto) 53.1 % (37.0-80.0) Lymphocytes (%) (Auto) 37.2 % (10.0-50.0) Monocytes (%) (Auto) 6.8 % (0.0-12.0) Eosinophils (%) (Auto) 2.2 % (0.0-7.0) Basophils (%) (Auto) 0.7 % (0.0-2.0) Neutrophils # (Auto) 2.9 10 ^3/uL (1.6-8.6) Lymphocytes # (Auto) 2.0 10 ^3/uL (0.4-5.4) Monocytes # (Auto) 0.4 10 ^3/uL (0-1.3) Eosinophils # (Auto) 0.1 10 ^3/uL (0-0.8) Basophils # (Auto) 0 10 ^3/uL (0-0.2) Nucleated Red Blood Cells 0.0 % Total Bilirubin 0.3 mg/dL (0.2-1.0) Aspartate Amino Transferase (AST) 10 U/L (13-40) Alanine Aminotransferase (ALT) 18 U/L (7-40) Alkaline Phosphatase 55 U/L (46-116) Total Protein 5.5 g/dL (5.7-8.2) Albumin 3.7 g/dL (3.2-4.8) Troponin I High Sensitivity < 3 ng/L (</=54) Test 07/23/24 10:14 Urine Color Light-yellow (Yellow) Urine Clarity Clear (Clear) Urine pH 6.0 (5.0-9.0) Urine Specific [place] 1.012 (1.001-1.035) Urine Protein Negative (Negative) Urine Ketones Negative (Negative) Urine Blood Negative /uL (Negative) Urine Nitrite Negative (Negative) Urine Bilirubin Negative (Negative) Urine Urobilinogen Normal mg/dL (Negative) Urine Leukocyte Esterase Negative /uL (Negative) Urine RBC None seen /hpf (0 - 3) Urine Microscopic WBC < 1 /HPF (0-3) Urine Squamous Epithelial Cells Few /hpf (<5) Urine Bacteria None seen /hpf (None Seen) Urine Glucose Normal mg/dL (Normal) Other Laboratory Tests 07/26/24 07:15 07/24/24 05:21 Brief Hx & Hospital Course: Final diagnoses: Abdominal pain due to urinary obstruction Urinary obstruction due to enlarged prostate Bilateral hydroureteronephrosis due to urinary retention due to BPH No renal calculus Distended bladder with circumferential wall thickening Constipation Acute kidney injury due to possibly bladder outlet obstruction BPH 48-year-old male who was admitted for abdominal pain and urinary retention with hydronephrosis bilateral Cooley catheter was placed and an ultrasound of the kidney showed improvement however he wanted Cooley catheter removed but after it was removed he was not able to urinate properly and then he had it inserted again Today he is doing better now with the urine is clear He is asymptomatic He can be discharged home Patient appears to have benign prostate hypertrophy PSA is normal Urology recommended to discharge him home with the Cooley catheter in for outpatient follow up He will be placed on Flomax at home Discharged home and follow up with Dr. Anmol Angel as soon as possible for outpatient follow up and removal of the catheter Condition at Discharge: Stable Final Diagnosis/Problems List Abdominal pain due to urinary obstruction Urinary obstruction due to enlarged prostate Bilateral hydroureteronephrosis due to urinary retention due to BPH No renal calculus Distended bladder with circumferential wall thickening Constipation Acute kidney injury due to possibly bladder outlet obstruction Discharge Disposition: Home SNF Discharge Will this Physician continue t: No Discharge Statement: "Patient was advised to return to the ER or call 911 if any headaches, dizziness, shortness of breath, chest pain, abdominal pain, bleeding, fevers, or worsening of medical condition. Patient was counseled about treatment plan, medications, possible side effects, patientverbalized understanding. All questions were answered to the best of my ability. This discharge took greater then 30 minutes in planning, reviewing documentation, counseling the patient, and discussing with other team members." ASSESSMENT ASSESSMENT Assessment Date of Service: Jul 26, 2024 Billing Provider: CANDELARIO CONWAY MD Common Visit Codes: [id number] DISCH DAY >30min CANDELARIO CONWAY MD Jul 26, 2024 11:23
[2024-07-26 12:07] LABS: PSA Free 0.18 ng/mL
[2024-07-26 12:13] VITALS: BP 96/54; PULSE 92; RESP 18; TEMP 97.8; O2SAT 92
[2024-07-26 12:45] VITALS: BP 98/38; PULSE 86; RESP 18; TEMP 98.1; O2SAT 93
== END 2024-07-26 15:00 | disposition home or self-care (01) | DRG 501 ==
LOC: ER 08:29 → EDBD 08:29 → OVERFLOW 13:27 → WEST WING 21:37
PROVIDERS: ADMIT Internal Medicine Geriatric Medicine; ATTEND Internal Medicine Geriatric Medicine
DX: N40.1 Benign prostatic hyperplasia with lower urinary tract symptoms (principal); N17.9 Acute kidney failure, unspecified; N13.30 Unspecified hydronephrosis; N32.0 Bladder-neck obstruction; F20.9 Schizophrenia, unspecified; F31.9 Bipolar disorder, unspecified; K59.00 Constipation, unspecified; N32.89 Other specified disorders of bladder; R33.8 Other retention of urine; D64.9 Anemia, unspecified; Z79.899 Other long term (current) drug therapy
CPT/HCPCS: 36415; 71045; 74177; 76775; 80048; 80053; 81001; 84154; 84484; 85025; 96360; 97116; 97162; 97530; G0378; J2405

== ENCOUNTER 2024-08-05 10:51 | Emergency (ER) | payer MEDICAID ==
[~2024-08-05] VITALS: Ht 172.7 cm; Wt 82.0 kg
[~2024-08-05 10:51] MED LIST: BENZ2TAB50 PO; HYDR-3682 PO; LORA-1123 PO; PANT40T PO; PRAZ2CAP2 PO; QUET400T13 PO; RISP2TAB62 PO; SENN-105 PO; TAMS-35 PO; TRAZ-228 PO
[2024-08-05 11:02] VITALS: PULSE 88; RESP 19; O2SAT 94
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
[2024-08-05] MEDS ORDERED: CIPR-173 PO (13:38)
[2024-08-05 13:54] VITALS: BP 112/69; PULSE 99; RESP 18; TEMP 97.5; O2SAT 95
== END 2024-08-05 14:03 | disposition home or self-care (01) ==
LOC: ER 10:51 → EDBD 10:51 → ER 14:03
DX: T83.9XXA Unspecified complication of genitourinary prosthetic device, implant and graft, initial encounter (principal); F20.9 Schizophrenia, unspecified; Z79.899 Other long term (current) drug therapy; Y92.89 Other specified places as the place of occurrence of the external cause
CPT/HCPCS: 51702

== ENCOUNTER → 2024-08-15 | Outpatient (CLI) | payer MEDICAID ==
[~2024-08-15] MED LIST changes: +CIPR-173 PO
[2024-08-15 13:23] LABS: Chloride 103 mmol/L (98-107); Potassium 3.8 mmol/L (3.5-5.1)
[2024-08-15 13:24] LABS: Anion Gap 7 (5-15); Calcium 9.4 mg/dL (8.7-10.4); Carbon Dioxide 25 mmol/L (20-31)
[2024-08-15 13:29] LABS: BUN/Creatinine Ratio 20.9 (10.0-20.0); Blood Urea Nitrogen 24 mg/dL (9-23); Glucose 98 mg/dL (74-106); Sodium 135 mmol/L (136-145)
== END | disposition home or self-care (01) ==
LOC: LAB 11:57
PROVIDERS: ATTEND Urology
DX: N40.1 Benign prostatic hyperplasia with lower urinary tract symptoms (principal)
CPT/HCPCS: 36415; 80048; 84153

== ENCOUNTER 2024-09-03 17:59 | Emergency (ER) | payer MEDICAID ==
[~2024-09-03] VITALS: Ht 177.8 cm; Wt 72.7 kg
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
[2024-09-03 21:14] LABS: Basophils # (auto) 0.1 10 ^3/uL (0-0.2); Eosinophils # (auto) 0.1 10 ^3/uL (0-0.8); Eosinophils % (auto) 0.7 % (0.0-7.0); Hematocrit 29.4 % (41.0-53.0); Hemoglobin 9.3 g/dL (13.5-17.5); Lymphocytes # (auto) 2.4 10 ^3/uL (0.4-5.4); Lymphocytes % (auto) 27.6 % (10.0-50.0); Mean Corpuscular Hemoglobin 21.6 pg (28.0-32.0); Mean Corpuscular Hgb Conc. 31.6 g/dL (32.0-36.0); Mean Corpuscular Volume 68.3 fL (80.0-100.0); Monocytes # (auto) 0.6 10 ^3/uL (0-1.3); Monocytes % (auto) 6.5 % (0.0-12.0); Neutrophils # (auto) 5.7 10 ^3/uL (1.6-8.6); Neutrophils % (auto) 64.2 % (37.0-80.0); Platelet Count (auto) 342 10^3/uL (140-450); Red Cell Distribution Width 19.3 % (11.8-14.3); White Blood Cell 8.9 10^3/uL (4.4-10.8)
[2024-09-03 21:28] LABS: Albumin 4.4 g/dL (3.2-4.8); Alkaline Phosphatase 72 U/L (46-116); Anion Gap 4 (5-15); Aspartate Aminotransferase 14 U/L (13-40); Blood Alcohol 3.6 mg/dL (<10); Blood Urea Nitrogen 22 mg/dL (9-23); Calcium 9.5 mg/dL (8.7-10.4); Carbon Dioxide 27 mmol/L (20-31); Chloride 104 mmol/L (98-107); Potassium 4.3 mmol/L (3.5-5.1); Total Protein 6.9 g/dL (5.7-8.2)
[2024-09-03 21:29] LABS: Bilirubin, Total 0.3 mg/dL (0.2-1.0)
[2024-09-03 21:31] LABS: Alanine Aminotransferase 9 U/L (7-40); Glucose 117 mg/dL (74-106); Sodium 135 mmol/L (136-145)
[2024-09-03] MEDS: hydrOXYzine 25 MG TAB or CAP PO ONE (22:11)
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
[2024-09-04 07:21] VITALS: BP 118/69; PULSE 82; RESP 14; TEMP 98; O2SAT 97
== END 2024-09-04 07:59 | disposition left against medical advice (07) ==
LOC: EDUNIT# 17:59 → ER 17:59 → EDBD 17:59 → ER 09-04 07:59
DX: R45.851 Suicidal ideations (principal); F20.9 Schizophrenia, unspecified; Z79.899 Other long term (current) drug therapy
CPT/HCPCS: 36415; 80053; 80320; 85025